=== PATIENT | male | born 1995 | race Caucasian/White ===

== ENCOUNTER 2021-08-01 11:15 | Outpatient (REF) | payer OTHER, SELFPAY ==
--- NOTE | ~2021-08-01 | XR_ITS ---
EXAMINATION: CR X-RAY HAND BILATERAL 3 VIEW CLINICAL INFORMATION: Bilateral hand pain status post injury. COMPARISON: None TECHNIQUE: 3 views each of the bilateral hands were obtained. FINDINGS: There is no acute fracture or dislocation. The joint spaces are unremarkable. The carpal bones are normally aligned. The distal radius and ulna are intact. The soft tissues are unremarkable. XR/XR hand RT min 3V IMPRESSION: Unremarkable bilateral hands.
--- NOTE | ~2021-08-01 | XR_ITS ---
EXAMINATION: CR X-RAY HAND BILATERAL 3 VIEW CLINICAL INFORMATION: Bilateral hand pain status post injury. COMPARISON: None TECHNIQUE: 3 views each of the bilateral hands were obtained. FINDINGS: There is no acute fracture or dislocation. The joint spaces are unremarkable. The carpal bones are normally aligned. The distal radius and ulna are intact. The soft tissues are unremarkable. XR/XR hand LT min 3V IMPRESSION: Unremarkable bilateral hands.
== END 2021-08-01 11:16 | disposition home or self-care (01) ==
LOC: HO.HMGCX 11:15
PROVIDERS: Visit Provider Physician Assistant Medical
DX: T14.90XA Injury, unspecified, initial encounter (principal); W22.8XXA Striking against or struck by other objects, initial encounter; Y93.71 Activity, boxing; Y92.9 Unspecified place or not applicable; Y99.9 Unspecified external cause status
CPT/HCPCS: 73130